=== PATIENT | female | born 1970 | race American Indian/Alaskan Native ===

== ENCOUNTER 2017-11-21 13:43 | Inpatient (IN) | payer SELFPAY ==
--- NOTE | 2017-11-21 15:34 | Emergency Department Report ---
Blank Doc - Documentation Documentation: Patient is a 47-year-old female who states she woke up this morning with numbness to the left upper extremity and lower extremity. Patient states she also has some mild weakness in both of these extremities as well. Patient denies any slurred speech problems speaking. Patient she felt normal yesterday. Patient denies any chest pain or shortness breath. Patient will be moved to the main ED f further management. CT of the head has been ordered as well as laboratory studies. Or - Level of Consciousness 1a. Level of Consciousness: alert - LOC Questions 1b. LOC Questions: answers correctly - LOC Command 1c. LOC Commands: performs tasks correctly - Best Gaze 2. Best Gaze: normal - Visual 3. Visual: no visual loss - Facial Palsy 4. Facial Palsy: normal symmetrical movement - Motor Arm 5b. Motor Arm Right: no drift 5a. Motor Arm Left: drift - Motor Leg 6a. Motor Leg Left: drift 6b. Motor Leg Right: no drift - Limb Ataxia 7. Limb Ataxia: absent - Sensory 8. Sensory: normal - Best Language 9. Best Language: no aphasia - Dysarthria 10. Dysarthria: normal - Extinction and Inattention 11. Extinction/Inattention: no abnormality - Scoring Total Score: 2 Stroke Severity: Minor Stroke
[2017-11-21 15:50] LABS: Basophils % (Auto) 0.3 % (0.0-1.8); Eosinophils % (Auto) 0.7 % (0.0-4.3); Hematocrit 28.2 % (30.3-42.9); Hemoglobin 8.5 gm/dl (10.1-14.3); Lymphocytes # (Auto) 1.6 K/mm3 (1.2-5.4); Lymphocytes % (Auto) 28.6 % (13.4-35.0); Mean Corpuscular HGB Conc 30 % (30-34); Monocytes # (Auto) 0.5 K/mm3 (0.0-0.8); Monocytes % (Auto) 8.9 % (0.0-7.3); Platelet Count 288 K/mm3 (140-440); Red Blood Count 4.25 M/mm3 (3.65-5.03)
[2017-11-21 15:55] LABS: Mean Corpuscular Hemoglobin 20 pg (28-32); Mean Corpuscular Volume 66 fl (79-97); Red Cell Distribution Width 20.3 % (13.2-15.2)
[2017-11-21 15:59] LABS: INR 0.95 (0.87-1.13)
[2017-11-21 16:00] LABS: Partial Thromboplastin Time 30.6 Sec. (24.2-36.6); Thrombin Time 15.9 Sec. (15.1-19.6)
[2017-11-21 16:35] LABS: Alanine Aminotransferase 8 units/L (7-56); Albumin 3.6 g/dL (3.9-5); BUN/Creatinine Ratio 17; Blood Urea Nitrogen 12 mg/dL (7-17); Calcium 8.8 mg/dL (8.4-10.2); Hemolysis Index 0
--- NOTE | 2017-11-21 16:41 | Emergency Department Report ---
HPI - General Chief Complaint: Back Pain/Injury Time Seen by Provider: 11/21/17 15:25 - HPI HPI: The patient is a 47-year-old female with a significant history of diabetes and hypertension, who presents for evaluation of left-sided numbness. The patient states that at 5 AM this morning, nearly 12 hours prior to my evaluation, she woke with numbness sensation of the left arm and leg, constant, severe, and associated with mild weakness of the distal lef upper and lower extremity. She has also experienced some sharp tingling pain to the distal upper and lower extremity. The patient denies fever, head injury, headache, neck pain, neck stiffness, vision or hearing changes, smell or taste changes, facial drooping, slurred speech, seizure-like activity, urine or bowel incontinence or retention , or other focal neurological deficit. ED Past Medical Hx - Past Medical History Hx Hypertension: Yes Hx Diabetes: Yes (on PO meds) - Surgical History Past Surgical History?: No - Social History Smoking Status: Never Smoker Substance Use Type: None - Medications Home Medications: Home Medications Medication Instructions Recorded Confirmed Last Taken Type Lisinopril [Zestril] 10 mg PO DAILY 11/21/17 11/21/17 11/21/17 History ED Review of Systems ROS: Stated complaint: (L) SIDE NUMB/HEART RACING Other details as noted in HPI Constitutional: denies: fever ENT: denies: throat or neck pain Respiratory: denies: cough, shortness of breath Cardiovascular: denies: chest pain Endocrine: denies unexplained weight loss or gain Gastrointestinal: denies: abdominal pain, nausea Genitourinary: denies: dysuria Musculoskeletal: denies: leg swelling Skin: denies: rash Neurological: reports numbness and weakness of left arm and leg denies: headache Hematological/Lymphatic: denies: easy bleeding or easy bruising Psych: denies sadness or hopelessness Physical Exam - Physical Exam Vital Signs: Vital Signs 11/21/17 14:02 Temperature 98.9 F Pulse Rate 85 Respiratory 16 Rate Blood Pressure 142/83 O2 Sat by Pulse 98 Oximetry Physical Exam: General: well-nourished, well-developed, no acute distress Head: Normocephalic, atraumatic Eyes: normal sclera ENT: Mucous membranes are pale and dry Neck: No neck stiffness, no cervical adenopathy Respiratory: Breath sounds equal bilaterally, no wheezing, rales, or rhonchi Cardio: S1 and S2 present, no murmurs, rubs, gallops, capillary refill is delayed Abdomen: Normoactive bowel sounds, soft abdomen, no rigidity, no guarding or rebound tenderness Chest WALL/Back: No tenderness to palpation of the chest wall, no CVA tenderness with percussion Musc: No pitting edema Skin: No rash Neuro: alert oriented x4, normal cognition, speech normal, PERRL, EOM intact, no facial drooping, no uvula or tongue deviation on protrusion, no deficit with rotation of neck or shoulder shrug, no obvious gross motor deficit in the upper or lower extremities with flexion or extension at the shoulder, elbow, wrist, hip, knee, or ankle bilaterally, decreased sensation to left arm and leg compared to right, no coordination deficit with [id number] or [id number] testing, Babinski downgoing, romberg negative, patient able to to ambulate with abnormal gait Psych: Normal affect ED Course Vital Signs 11/21/17 14:02 Temperature 98.9 F Pulse Rate 85 Respiratory 16 Rate Blood Pressure 142/83 O2 Sat by Pulse 98 Oximetry ED Medical Decision Making - Lab Data Result diagrams: 11/21/17 15:36 11/21/17 15:36 - Medical Decision Making The patient was seen and examined by myself. The patient is placed on a radiation monitor and continuous pulse ox. On initial evaluation, the patient was found to be in no distress. Evaluation orders were placed. CT scan of the head is negative for acute skull disease process. The patient is given a tablet of asprin for txt of her stroke as she was not a TPA candidate due to sterile also a greater than 12 hours ago. The on-call hospitalist service was contacted. They agreed to admit the patient for further treatment and close monitoring. The ED admit order was placed. The patient was admitted in guarded condition. - Level of Consciousness 1a. Level of Consciousness: alert - LOC Questions 1b. LOC Questions: answers correctly - LOC Command 1c. LOC Commands: performs tasks correctly - Best Gaze 2. Best Gaze: normal - Visual 3. Visual: no visual loss - Facial Palsy 4. Facial Palsy: normal symmetrical movement - Motor Arm 5b. Motor Arm Right: no drift 5a. Motor Arm Left: drift - Motor Leg 6a. Motor Leg Left: drift 6b. Motor Leg Right: no drift - Limb Ataxia 7. Limb Ataxia: absent - Sensory 8. Sensory: normal - Best Language 9. Best Language: no aphasia - Dysarthria 10. Dysarthria: normal - Extinction and Inattention 11. Extinction/Inattention: no abnormality - Scoring Total Score: 2 Stroke Severity: Minor Stroke Critical care attestation.: If time is entered above; I have spent that time in minutes in the direct care of this critically ill patient, excluding procedure time. ED Disposition Clinical Impression: Stroke Qualifiers: CVA mechanism: unspecified Qualified Code(s): I63.9 - Cerebral infarction, unspecified Disposition: DC-09 OP ADMIT IP TO THIS HOSP Is pt being admited?: Yes Does the pt Need Aspirin: Yes Condition: Fair Referrals: PRIMARY CARE [Primary Care Provider] - 3-5 Days Time of Disposition: 17:11
[2017-11-21] MEDS ORDERED: ZOFRAN IV ONE (16:51)
[2017-11-21] MEDS ORDERED: SUBLIMAZE IV ONE (16:51)
--- NOTE | 2017-11-21 17:24 | Cat Scan Report ---
FINAL REPORT PROCEDURE: CT HEAD/BRAIN WO CON TECHNIQUE: Computerized tomography of the head was performed without contrast material. HISTORY: Stroke symptoms COMPARISON: No prior studies are available for comparison. FINDINGS: No CT evidence of intracranial mass, hemorrhage, acute territorial infarction, or hydrocephalus. The intracranial arteries are symmetric in density. Calvarium is intact. The visualized paranasal sinuses and mastoids are aerated. IMPRESSION: No CT evidence of acute intracranial abnormality
[2017-11-21] MEDS ORDERED: BABY ASPIRIN PO ONE (18:17)
[2017-11-21] MEDS ORDERED: TYLENOL PO ONE (18:52)
[2017-11-21] MEDS ORDERED: TYLENOL PO PRN (22:33)
[2017-11-21] MEDS ORDERED: MORPHINE IV PRN (22:33)
[2017-11-21] MEDS ORDERED: ZOFRAN IV PRN (22:33)
[2017-11-21] MEDS ORDERED: SODIUM CHLORIDE FLUSH SYRINGE 10 ML IV PRN ×2 (22:33→22:35)
[2017-11-21] MEDS ORDERED: PERCOCET 5/325 PO PRN (22:33)
--- NOTE | 2017-11-21 22:33 | History and Physical Report ---
History of Present Illness Date of examination: 11/21/17 Date of admission: 11/21/17 18:28 Chief complaint: CC L side weakness and numbness since 5 am History of present illness: HPI 47-year-old female with a significant history of diabetes and hypertension, who presents for evaluation of left-sided numbness and weakness. The patient states that at 5 AM this morning, nearly 12 hours prior to ED admission woke up with numbness sensation of the left arm and leg, constant, severe, and associated with mild weakness of the distal lef upper and lower extremity. She has also experienced some sharp tingling pain to the distal upper and lower extremity. The patient denies fever, head injury, headache, neck pain, neck stiffness, vision or hearing changes, smell or taste changes, facial drooping, slurred speech, seizure-like activity, urine or bowel incontinence or retention , or other focal neurological deficit. Past Medical History Hx Hypertension: Yes Hx Diabetes: Yes (on PO meds) Surgical History Past Surgical History?: No Social History Smoking Status: Never Smoker Substance Use Type: None Family Hx Htn Medications Home Medications: Home Medications Medication Instructions Recorded Confirmed Last Taken Type Lisinopril [Zestril] 10 mg PO DAILY 11/21/17 11/21/17 11/21/17 History Review of Systems ROS: Stated complaint: (L) SIDE NUMB/HEART RACING Other details as noted in HPI Constitutional: denies: fever ENT: denies: throat or neck pain Respiratory: denies: cough, shortness of breath Cardiovascular: denies: chest pain Endocrine: denies unexplained weight loss or gain Gastrointestinal: denies: abdominal pain, nausea Genitourinary: denies: dysuria Musculoskeletal: denies: leg swelling Skin: denies: rash Neurological: reports numbness and weakness of left arm and leg denies: headache Hematological/Lymphatic: denies: easy bleeding or easy bruising Psych: denies sadness or hopelessness Medications and Allergies Allergies Allergy/AdvReac Type Severity Reaction Status Date / Time No Known Allergies Allergy Verified 09/21/13 07:42 Home Medications Medication Instructions Recorded Confirmed Last Taken Type Lisinopril [Zestril] 10 mg PO DAILY 11/21/17 11/21/17 11/21/17 History Exam - Constitutional Vitals: Temp Pulse Resp BP Pulse Ox 98.3 F 86 13 134/77 96 11/21/17 19:15 11/21/17 20:00 11/21/17 20:00 11/21/17 20:00 11/21/17 20:00 Results - Labs CBC & Chem 7: 11/22/17 03:52 11/22/17 03:52 Labs: Laboratory Last Values WBC 5.5 K/mm3 (4.5-11.0) 11/21/17 15:36 RBC 4.25 M/mm3 (3.65-5.03) 11/21/17 15:36 Hgb 8.5 gm/dl (10.1-14.3) L 11/21/17 15:36 Hct 28.2 % (30.3-42.9) L 11/21/17 15:36 MCV 66 fl (79-97) L 11/21/17 15:36 MCH 20 pg (28-32) L 11/21/17 15:36 MCHC 30 % (30-34) 11/21/17 15:36 RDW 20.3 % (13.2-15.2) H 11/21/17 15:36 Plt Count 288 K/mm3 (140-440) 11/21/17 15:36 Lymph % (Auto) 28.6 % (13.4-35.0) 11/21/17 15:36 [place] % (Auto) 8.9 % (0.0-7.3) H 11/21/17 15:36 Eos % (Auto) 0.7 % (0.0-4.3) 11/21/17 15:36 Baso % (Auto) 0.3 % (0.0-1.8) 11/21/17 15:36 Lymph # 1.6 K/mm3 (1.2-5.4) 11/21/17 15:36 [place] # 0.5 K/mm3 (0.0-0.8) 11/21/17 15:36 Eos # 0.0 K/mm3 (0.0-0.4) 11/21/17 15:36 Baso # 0.0 K/mm3 (0.0-0.1) 11/21/17 15:36 Seg Neutrophils % 61.5 % (40.0-70.0) 11/21/17 15:36 Seg Neutrophils # 3.4 K/mm3 (1.8-7.7) 11/21/17 15:36 PT 13.2 Sec. (12.2-14.9) 11/21/17 15:36 INR 0.95 (0.87-1.13) 11/21/17 15:36 APTT 30.6 Sec. (24.2-36.6) 11/21/17 15:36 Thrombin Time 15.9 Sec. (15.1-19.6) 11/21/17 15:36 Sodium 142 mmol/L (137-145) 11/21/17 15:36 Potassium 3.5 mmol/L (3.6-5.0) L 11/21/17 15:36 Chloride 104.9 mmol/L (98-107) 11/21/17 15:36 Carbon Dioxide 26 mmol/L (22-30) 11/21/17 15:36 Anion Gap 15 mmol/L 11/21/17 15:36 BUN 12 mg/dL (7-17) 11/21/17 15:36 Creatinine 0.7 mg/dL (0.7-1.2) 11/21/17 15:36 Estimated GFR > 60 ml/min 11/21/17 15:36 BUN/Creatinine Ratio 17 % 11/21/17 15:36 Glucose 100 mg/dL (65-100) 11/21/17 15:36 POC Glucose 128 (70-105) H 11/21/17 14:12 Calcium 8.8 mg/dL (8.4-10.2) 11/21/17 15:36 Total Bilirubin < 0.20 mg/dL (0.1-1.2) 11/21/17 15:36 AST 16 units/L (5-40) 11/21/17 15:36 ALT 8 units/L (7-56) 11/21/17 15:36 Alkaline Phosphatase 80 units/L (35-129) 11/21/17 15:36 Total Creatine Kinase 164 units/L (30-135) H 11/21/17 15:36 CK-MB (CK-2) 1.0 ng/mL (0.0-4.0) 11/21/17 15:36 CK-MB (CK-2) Rel Index 0.6 (0-4) 11/21/17 15:36 Troponin T < 0.010 ng/mL (0.00-0.029) 11/21/17 15:36 Total Protein 6.9 g/dL (6.3-8.2) 11/21/17 15:36 Albumin 3.6 g/dL (3.9-5) L 11/21/17 15:36 Albumin/Globulin Ratio 1.1 % 11/21/17 15:36 Assessment and Plan Advance Directives: Yes (Full code) VTE prophylaxis?: Chemical Plan of care discussed with patient/family: Yes - Patient Problems (1) Acute CVA (cerebrovascular accident) Current Visit: Yes Status: Acute Plan to address problem: Has some residual weakness inLUE Stroke w/u initiated in the form of MRI/MRA/CDS/ECho Neuro consult requested (2) HTN (hypertension) Current Visit: Yes Status: Chronic Qualifiers: Hypertension type: essential hypertension Qualified Code(s): I10 - Essential (primary) hypertension Plan to address problem: Cont antihypertensives (3) DVT prophylaxis Current Visit: Yes Status: Acute Plan to address problem: On Lovenox
[2017-11-22 04:40] LABS: Basophils % (Auto) 0.6 % (0.0-1.8); Eosinophils % (Auto) 0.7 % (0.0-4.3); Lymphocytes % (Auto) 34.3 % (13.4-35.0); Mean Corpuscular HGB Conc 29 % (30-34); Monocytes # (Auto) 0.6 K/mm3 (0.0-0.8); Monocytes % (Auto) 9.7 % (0.0-7.3); Platelet Count 267 K/mm3 (140-440)
[2017-11-22 05:14] LABS: Hemoglobin 8.2 gm/dl (10.1-14.3)
[2017-11-22 05:15] LABS: Hematocrit 27.8 % (30.3-42.9); Mean Corpuscular Hemoglobin 20 pg (28-32); Mean Corpuscular Volume 68 fl (79-97); Red Cell Distribution Width 20.5 % (13.2-15.2)
[2017-11-22 05:33] LABS: Alanine Aminotransferase 9 units/L (7-56); Albumin 3.4 g/dL (3.9-5); BUN/Creatinine Ratio 19; Blood Urea Nitrogen 13 mg/dL (7-17); Calcium 8.5 mg/dL (8.4-10.2); Chol/HDL Ratio 4.37 %; HDL Cholesterol 37 mg/dL (40-59); Hemolysis Index 14; LDL Cholesterol,Direct 122 mg/dL (50-130)
--- NOTE | 2017-11-22 08:35 | Progress Note ---
Assessment and Plan Assessment and plan: Patient is a 47 yo woman with a history of NIDDM, hypertension and obesity bmi 41.8 who presented with left side weakness and numbness. CT head w/o contrast reported no acute process -Acute CVA (cerebrovascular accident) ruled out -Hypertension: continue antihypertension -Anemia, microcytic: cbc monitoring -Morbid Obesity, BMI 41.8: consult Escapement Matcher -Hypokalemia, replace: bmp monitor -DVT prophylaxis: scd only History Interval history: Patient was seen and examined. Follow-up on current diagnosis of CVA. Overnight uneventful. Patient denies any chest pain, shortness breath, nausea/vomiting or severe headaches. Imaging, nursing note, chart, labs and old chart reviewed. Discussed with patient. Hospitalist Physical - Physical exam Narrative exam: GEN: WDWN, NAD, Awake, Alert, Orientated HEENT: NCAT, EOMI, PERRL, OP Clear NECK: supple, no adenopathy, no thyromegaly, no JVD CVS/HEART: RRR, normal S1S2, pulses present bilaterally CHEST/LUNGS: CTA B, Symmetrical chest expansion, good air entry bilaterally GI/Abdomen: soft, NTND, good bowel sounds, no guarding or rebound /Bladder: no suprapubic tenderness, no CVA or paraspinal tenderness EXT/Skin: no c/c/e, no obvious rash MSK: FROM x 4 Neuro: CN 2-12 grossly intact, no new focal deficits Psych: calm - Constitutional Vitals: Temp Pulse Resp BP Pulse Ox 98.1 F 70 20 136/83 98 11/22/17 04:29 11/22/17 04:29 11/22/17 04:29 11/22/17 04:29 11/22/17 04:29 Results - Labs CBC & Chem 7: 11/22/17 03:52 11/22/17 03:52 Labs: Laboratory Last Values WBC 5.8 K/mm3 (4.5-11.0) 11/22/17 03:52 RBC 4.10 M/mm3 (3.65-5.03) 11/22/17 03:52 Hgb 8.2 gm/dl (10.1-14.3) L 11/22/17 03:52 Hct 27.8 % (30.3-42.9) L 11/22/17 03:52 MCV 68 fl (79-97) L 11/22/17 03:52 MCH 20 pg (28-32) L 11/22/17 03:52 MCHC 29 % (30-34) L 11/22/17 03:52 RDW 20.5 % (13.2-15.2) H 11/22/17 03:52 Plt Count 267 K/mm3 (140-440) 11/22/17 03:52 Lymph % (Auto) 34.3 % (13.4-35.0) 11/22/17 03:52 [place] % (Auto) 9.7 % (0.0-7.3) H 11/22/17 03:52 Eos % (Auto) 0.7 % (0.0-4.3) 11/22/17 03:52 Baso % (Auto) 0.6 % (0.0-1.8) 11/22/17 03:52 Lymph # 2.0 K/mm3 (1.2-5.4) 11/22/17 03:52 [place] # 0.6 K/mm3 (0.0-0.8) 11/22/17 03:52 Eos # 0.0 K/mm3 (0.0-0.4) 11/22/17 03:52 Baso # 0.0 K/mm3 (0.0-0.1) 11/22/17 03:52 Seg Neutrophils % 54.7 % (40.0-70.0) 11/22/17 03:52 Seg Neutrophils # 3.2 K/mm3 (1.8-7.7) 11/22/17 03:52 PT 13.2 Sec. (12.2-14.9) 11/21/17 15:36 INR 0.95 (0.87-1.13) 11/21/17 15:36 APTT 30.6 Sec. (24.2-36.6) 11/21/17 15:36 Thrombin Time 15.9 Sec. (15.1-19.6) 11/21/17 15:36 Sodium 141 mmol/L (137-145) 11/22/17 03:52 Potassium 4.6 mmol/L (3.6-5.0) D 11/22/17 03:52 Chloride 105.2 mmol/L (98-107) 11/22/17 03:52 Carbon Dioxide 21 mmol/L (22-30) L 11/22/17 03:52 Anion Gap 19 mmol/L 11/22/17 03:52 BUN 13 mg/dL (7-17) 11/22/17 03:52 Creatinine 0.7 mg/dL (0.7-1.2) 11/22/17 03:52 Estimated GFR > 60 ml/min 11/22/17 03:52 BUN/Creatinine Ratio 19 % 11/22/17 03:52 Glucose 67 mg/dL (65-100) 11/22/17 03:52 POC Glucose 128 (70-105) H 11/21/17 14:12 Hemoglobin A1c 5.8 % (4-6) 11/21/17 23:14 Calcium 8.5 mg/dL (8.4-10.2) 11/22/17 03:52 Total Bilirubin < 0.20 mg/dL (0.1-1.2) 11/22/17 03:52 AST 19 units/L (5-40) 11/22/17 03:52 ALT 9 units/L (7-56) 11/22/17 03:52 Alkaline Phosphatase 79 units/L (35-129) 11/22/17 03:52 Total Creatine Kinase 164 units/L (30-135) H 11/21/17 15:36 CK-MB (CK-2) 1.0 ng/mL (0.0-4.0) 11/21/17 15:36 CK-MB (CK-2) Rel Index 0.6 (0-4) 11/21/17 15:36 Troponin T < 0.010 ng/mL (0.00-0.029) 11/21/17 15:36 Total Protein 6.5 g/dL (6.3-8.2) 11/22/17 03:52 Albumin 3.4 g/dL (3.9-5) L 11/22/17 03:52 Albumin/Globulin Ratio 1.1 % 11/22/17 03:52 Triglycerides 84 mg/dL (2-149) 11/22/17 03:52 Cholesterol 162 mg/dL (50-199) 11/22/17 03:52 LDL Cholesterol Direct 122 mg/dL (50-130) 11/22/17 03:52 HDL Cholesterol 37 mg/dL (40-59) L 11/22/17 03:52 Cholesterol/HDL Ratio 4.37 % 11/22/17 03:52
[2017-11-22] MEDS ORDERED: SODIUM CHLORIDE FLUSH SYRINGE 10 ML IV SCH (10:00)
[2017-11-22] MEDS ORDERED: ZESTRIL PO SCH (10:00)
--- NOTE | 2017-11-22 11:22 | Magnetic Resonance Report ---
MRI BRAIN WITHOUT CONTRAST: 11/22/17 CLINICAL: Stroke. TECHNIQUE: Axial diffusion, T1, T2, gradient echo T2*, coronal and axial FLAIR and sagittal T1 sequences on a 1.5 Bozena magnet. FINDINGS: Normal ventricles and sulci. No restricted diffusion and no abnormal signal. No mass or mass effect. No hemorrhage, edema or extra-axial collection. Normal pituitary and optic chiasm. The brainstem and cerebellum are normal. Intact vascular flow voids. Bilateral maxillary mucous retention cysts and otherwise clear sinuses. The orbits, and soft tissues are normal. Normal calvarium and skull base. IMPRESSION: Negative study. No evidence of acute/subacute infarct or hemorrhage.
--- NOTE | 2017-11-22 11:24 | Magnetic Resonance Report ---
MRA HEAD WITHOUT CONTRAST: 11/22/17 CLINICAL: Stroke. TECHNIQUE: Axial 3-D [id number] MR angiography of the [place] with review of axial source images. FINDINGS: Intact [place] with no aneurysm, stenosis or occlusion. Symmetric blood flow in the anterior, middle and posterior cerebral arteries. Normal basilar and vertebral arteries. IMPRESSION: Normal study.
[2017-11-22 12:49] VITALS: BP 156/84
--- NOTE | 2017-11-22 14:35 | Discharge Summary ---
Providers - Providers Date of Admission: 11/21/17 18:28 Date of discharge: 11/22/17 Attending physician: ALEXIA OWENS 11/21/17 22:33 Consult to Physician [CONS] Routine Comment: Consulting Provider: SEEMA LOPEZ Physician Instructions: Reason For Exam: CVA 11/21/17 22:35 Occupational Therapy Evaluate and Treat [CONS] Routine Comment: Reason For Exam: Neuro deficits Physical Therapy Evaluation and Treat [CONS] Routine Comment: Reason For Exam: Neuro deficits Primary care physician: ADOLESCENT PSYCHIATRIST Hospitalization Condition: Stable Hospital course: Patient is a 47 yo woman with a history of NIDDM, hypertension and obesity bmi 41.8 who presented with left side weakness and numbness. 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 -Hypokalemia, replace: bmp monitor -DVT prophylaxis: scd only Disposition: DC- TO HOME OR SELFCARE Time spent for discharge: 35 minutes Core Measure Documentation - Palliative Care Palliative Care/ Comfort Measures: Not Applicable - Core Measures Any of the following diagnoses?: none - VTE Discharge Requirements Deep Vein Thrombosis/Pulmonary Embolism Present on Admission: No Has pt received <5 days of overlap therapy or INR<2.0: No Anticoagulant overlap therapy prescribed at discharge: No Contraindication No Overlap Therapy order at DC: Not Indicated Exam - Physical Exam Narrative exam: GEN: WDWN, NAD, Awake, Alert, Orientated x 3 HEENT: NCAT, EOMI, PERRL, OP Clear NECK: supple, no adenopathy, no thyromegaly, no JVD CVS/HEART: RRR, normal S1S2, pulses present bilaterally CHEST/LUNGS: CTA B, Symmetrical chest expansion, good air entry bilaterally GI/Abdomen: soft, NTND, good bowel sounds, no guarding or rebound /Bladder: no suprapubic tenderness, no CVA or paraspinal tenderness EXT/Skin: no c/c/e, no obvious rash MSK: FROM x 4, 4/5 lue strength but encouragement improves strength Neuro: CN 2-12 grossly intact, no new focal deficits Psych: calm - Constitutional Vitals: Temp Pulse Resp BP Pulse Ox 97.8 F 74 20 156/84 99 11/22/17 11:30 11/22/17 11:30 11/22/17 11:30 11/22/17 11:30 11/22/17 11:30 Plan Activity: other (no strenous activity ) Diet: low salt Additional Instructions: [facility]. [address]. [place] [address]. [phone] Follow up with: PRIMARY CAREMD [Primary Care Provider] - 3-5 Days
--- NOTE | 2017-11-22 15:15 | Consultation ---
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 She went to work then developed headache , so proceeded to come to ER. The patient denied chest pain, palpitations, diaphoresis, blurred vision or double vision, change in speech, or facial numbness or weakness, no dizziness. Evaluation with CT was negative, Echocardiogram shows EF of 50 to 55%. Brain MRI and MRA are also unremarkable. Her symptoms of numbness and weakness have resolved and she has been up walking. Past History Past Medical History: diabetes, hypertension Social history: lives with family. denies: smoking, alcohol abuse Family history: CAD, cancer, diabetes, hypertension, stroke Medications and Allergies Allergies Allergy/AdvReac Type Severity Reaction Status Date / Time No Known Allergies Allergy Verified 09/21/13 07:42 Home Medications Medication Instructions Recorded Confirmed Last Taken Type Lisinopril [Zestril] 10 mg PO DAILY 11/21/17 11/21/17 11/21/17 History Acetaminophen [Acetaminophen TAB] 650 mg PO Q4H PRN #20 tablet 11/22/17 Unknown Rx Active Meds: Active Medications Acetaminophen (Tylenol) 650 mg PO Q4H PRN PRN Reason: Pain MILD(1-3)/Fever >100.5/VARGAS Lisinopril (Zestril) 10 mg PO DAILY [facility] Last Admin: 11/22/17 12:17 Dose: 10 mg Morphine Sulfate (Morphine) 2 mg IV Q4H PRN PRN Reason: Pain, Moderate (4-6) Ondansetron HCl (Zofran) 4 mg IV Q8H PRN PRN Reason: Nausea And Vomiting Oxycodone/Acetaminophen (Percocet 5/325) 1 tab PO Q6H PRN PRN Reason: Pain, Moderate (4-6) Last Admin: 11/22/17 12:18 Dose: 1 tab Sodium Chloride (Sodium Chloride Flush Syringe 10 Ml) 10 ml IV BID [facility] Last Admin: 11/22/17 12:23 Dose: 10 ml Sodium Chloride (Sodium Chloride Flush Syringe 10 Ml) 10 ml IV PRN PRN PRN Reason: LINE FLUSH Sodium Chloride (Sodium Chloride Flush Syringe 10 Ml) 10 ml IV PRN PRN PRN Reason: LINE FLUSH Review of Systems Constitutional: weakness, no sweats, no night sweats, no fatigue, no chronic headaches Ears, nose, mouth and throat: headache, no tinnitis, no decreased hearing, no vertigo Cardiovascular: no chest pain, no palpitations, no rapid/irregular heart beat, no edema, no syncope, no lightheadedness, no shortness of breath Respiratory: no cough, no hemoptysis, no shortness of breath, no dyspnea on exertion, no congestion, no pain Gastrointestinal: no abdominal pain, no nausea, no vomiting, no diarrhea, no constipation Genitourinary Female: no dysuria, no urinary frequency, no urgency Musculoskeletal: arm numbness/tingling, leg numbness/tingling, no neck pain, no low back pain Integumentary: no rash Neurological: transient paralysis, numbness, tingling, no head injury, no seizures, no syncope, no vertigo, no headaches, no balance difficulties, no double vision, no loss of vision, no hearing difficulties Endocrine: no weight change Hematologic/Lymphatic: no easy bruising Allergic/Immunologic: no urticaria Physical Examination - Vital Signs Vital Signs: Vital Signs Temp Pulse Resp BP Pulse Ox 98.9 F 85 16 142/83 98 11/21/17 14:02 11/21/17 14:02 11/21/17 14:02 11/21/17 14:02 11/21/17 14:02 Resting comfortably in bed. HEENT - no inflammation or lesions. neck supple, without adenopathy. Chest - clear to auscultation. Heart - reg. rate, nl S-1. S-2. Abdomen - soft, nontender. no organomegally or masses. Extremities - no CCE. Neurological - speech fluent. 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 V-1 thru V-3 intact bilaterally, hearing intact. Motor - 5/5 throughout. Reflexes - trace bilaterally Sensory - intact to touch and sharp. Cerebellar - FTN, Mann, fine finger movements intact. - Level of Consciousness 1a. Level of Consciousness: alert - LOC Questions 1b. LOC Questions: answers correctly - LOC Command 1c. LOC Commands: performs tasks correctly - Best Gaze 2. Best Gaze: normal - Visual 3. Visual: no visual loss - Facial Palsy 4. Facial Palsy: normal symmetrical movement - Motor Arm 5b. Motor Arm Right: no drift - Motor Leg 6a. Motor Leg Left: drift - Limb Ataxia 7. Limb Ataxia: absent - Sensory 8. Sensory: normal - Best Language 9. Best Language: no aphasia - Dysarthria 10. Dysarthria: normal - Extinction and Inattention 11. Extinction/Inattention: no abnormality Results - Laboratory Findings CBC and BMP: 11/22/17 03:52 11/22/17 03:52 Abnormal Lab Findings: Abnormal Labs 11/21/17 11/21/17 11/21/17 14:12 15:36 15:36 Hgb 8.5 L Hct 28.2 L MCV 66 L MCH 20 L MCHC RDW 20.3 H Mason % (Auto) 8.9 H Potassium 3.5 L Carbon Dioxide POC Glucose 128 H Total Creatine Kinase 164 H Albumin 3.6 L HDL Cholesterol 11/22/17 11/22/17 11/22/17 03:52 03:52 11:38 Hgb 8.2 L Hct 27.8 L MCV 68 L MCH 20 L MCHC 29 L RDW 20.5 H Mason % (Auto) 9.7 H Potassium Carbon Dioxide 21 L POC Glucose 108 H Total Creatine Kinase Albumin 3.4 L HDL Cholesterol 37 L Assessment and Plan 47 year old female who presented with left numbness and weakness, now resolved. Risk factors include diabetes, hypertension, family history. Symptoms were consistent with subcortical small vessel disease. MRI and MRA brain were normal. Plan - ASA 81 mg daily Maintain blood pressure and glucose control.
[2017-11-22] MEDS ORDERED: BABY ASPIRIN PO SCH (16:00)
== END 2017-11-22 15:47 | disposition home or self-care (01) | DRG 92 ==
LOC: ED 13:43 → 4A 18:28
PROVIDERS: ADMIT Internal Medicine; ATTEND Internal Medicine
DX: G95.89 Other specified diseases of spinal cord (principal); Z68.41 Body mass index [BMI] 40.0-44.9, adult; E11.9 Type 2 diabetes mellitus without complications; I10 Essential (primary) hypertension; G72.89 Other specified myopathies; D53.9 Nutritional anemia, unspecified; E66.01 Morbid (severe) obesity due to excess calories; E87.6 Hypokalemia; Z82.49 Family history of ischemic heart disease and other diseases of the circulatory system; Z80.9 Family history of malignant neoplasm, unspecified; Z83.3 Family history of diabetes mellitus; Z82.3 Family history of stroke; Z79.899 Other long term (current) drug therapy
CPT/HCPCS: 36415; 70450; 70544; 70551; 80053; 80061; 82550; 82553; 82962; 83036; 84484; 85025; 85610; 85670; 85730; 93005; 93010; 93306; 93880; 96374; 96375; J2405; J3010

== ENCOUNTER 2020-10-25 19:57 | Emergency (ER) | payer BC ==
--- NOTE | 2020-10-25 20:51 | Cat Scan Report ---
CT ABDOMEN AND PELVIS WITHOUT CONTRAST INDICATION / CLINICAL INFORMATION: Right lower quadrant pain with nausea. TECHNIQUE: Axial CT images were obtained through the abdomen and pelvis without IV contrast. All CT scans at this location are performed using CT dose reduction for ALARA by means of automated exposure control. COMPARISON: None available. FINDINGS: LOWER CHEST: No significant abnormality. LIVER: No significant abnormality. GALLBLADDER: No significant abnormality. BILE DUCTS: No significant abnormality. PANCREAS: No significant abnormality. SPLEEN: No significant abnormality. ADRENALS: No significant abnormality. RIGHT KIDNEY / URETER: No significant abnormality. LEFT KIDNEY / URETER: No significant abnormality. STOMACH / SMALL BOWEL: No significant abnormality. COLON: No significant abnormality. APPENDIX: No significant abnormality. PERITONEUM: No free fluid. No free air. No fluid collection. LYMPH NODES: No significant adenopathy. VASCULAR STRUCTURES: No significant abnormality. URINARY BLADDER: No significant abnormality. REPRODUCTIVE ORGANS: Fibroid uterus. ADDITIONAL FINDINGS: None. SKELETAL SYSTEM: Facet DJD localized L5-S1. IMPRESSION: 1. Negative for obstruction or localized inflammation. 2. Fibroid uterus. Signer Name: Luca Cervantes MD Signed: 10/25/2020 8:46 PM Workstation Name: [id number]
[2020-10-25 21:29] LABS: BUN/Creatinine Ratio 19; Blood Urea Nitrogen 15 mg/dL (7-17); Calcium 9.1 mg/dL (8.4-10.2); Hemolysis Index 3
[2020-10-25 21:31] LABS: Eosinophils # (Auto) 0.1 K/mm3 (0.0-0.4); Lymphocytes # (Auto) 2.1 K/mm3 (1.2-5.4); Lymphocytes % (Auto) 28.5 % (13.4-35.0); Mean Corpuscular HGB Conc 29 % (30-34); Monocytes # (Auto) 0.7 K/mm3 (0.0-0.8); Monocytes % (Auto) 9.9 % (0.0-7.3); Platelet Count 316 K/mm3 (140-440); Red Blood Count 4.44 M/mm3 (3.65-5.03)
[2020-10-25 21:32] LABS: Hemoglobin 7.7 gm/dl (10.1-14.3); Mean Corpuscular Volume 61 fl (79-97); Red Cell Distribution Width 22.4 % (13.2-15.2)
[2020-10-25] MEDS ORDERED: MORPHINE 4 MG/1 ML INJ IM ONE (22:11)
[2020-10-25] MEDS ORDERED: ONDANSETRON 4 MG/2 ML INJ IM ONE (22:11)
[2020-10-25] MEDS ORDERED: KETOROLAC 60 MG/2 ML INJ IM ONE (22:16)
--- NOTE | 2020-10-25 22:16 | Emergency Department Report ---
ED Abdominal Pain HPI - General Chief Complaint: Abdominal Pain Stated Complaint: SHARP RT SIDE PAINS Time Seen by Provider: 10/25/20 22:07 Source: patient Mode of arrival: Ambulatory Limitations: No Limitations - History of Present Illness Initial Comments: Patient is 50 years old female with history of hypertension and diabetes. Patient presented to the ER complaining of right lower quadrant abdominal pain since last night. Patient described her pain as sharp with no radiation. Patient also reported nausea but no vomiting. No diarrhea. Patient denied any fever or chills. She also denied any vaginal bleeding or vaginal discharge. MD Complaint: abdominal pain -: Last night Location: RLQ, suprapubic Radiation: none Migration to: no migration Severity: moderate Severity scale (0 -10): 5 Quality: sharp Consistency: intermittent Associated Symptoms: nausea. denies: vomiting, diarrhea - Related Data Previous Rx's Medication Instructions Recorded Last Taken Type Acetaminophen [Acetaminophen TAB] 650 mg PO Q4H PRN #20 tablet 11/22/17 Unknown Rx Lisinopril [Zestril] 10 mg PO DAILY #30 tablet 11/22/17 Unknown Rx Ketorolac [Toradol] 10 mg PO Q6H PRN #20 tablet 10/25/20 Unknown Rx Ondansetron [Zofran Odt] 4 mg PO Q8HR PRN #14 tab.rapdis 10/25/20 Unknown Rx Allergies Allergy/AdvReac Type Severity Reaction Status Date / Time No Known Allergies Allergy Verified 09/21/13 07:42 ED Review of Systems ROS: Stated complaint: SHARP RT SIDE PAINS Other details as noted in HPI Comment: All other systems reviewed and negative Constitutional: denies: chills, fever Respiratory: denies: cough, shortness of breath, SOB with exertion, SOB at rest Cardiovascular: denies: chest pain, palpitations Gastrointestinal: abdominal pain, nausea. denies: vomiting, diarrhea, constipation, hematemesis, melena, hematochezia Genitourinary: denies: urgency, dysuria Musculoskeletal: denies: back pain Neurological: denies: headache, weakness, numbness, paresthesias, confusion ED Past Medical Hx - Past Medical History Previous Medical History?: No Hx Hypertension: Yes Hx Diabetes: Yes (on PO meds) - Surgical History Past Surgical History?: No - Social History Smoking Status: Never Smoker - Medications Home Medications: Home Medications Medication Instructions Recorded Confirmed Last Taken Type Acetaminophen [Acetaminophen TAB] 650 mg PO Q4H PRN #20 tablet 11/22/17 Unknown Rx Lisinopril [Zestril] 10 mg PO DAILY #30 tablet 11/22/17 Unknown Rx Ketorolac [Toradol] 10 mg PO Q6H PRN #20 tablet 10/25/20 Unknown Rx Ondansetron [Zofran Odt] 4 mg PO Q8HR PRN #14 tab.rapdis 10/25/20 Unknown Rx ED Physical Exam - General Limitations: No Limitations General appearance: alert, in no apparent distress - Head Head exam: Present: atraumatic, normocephalic, normal inspection - Eye Eye exam: Present: normal appearance, PERRL - ENT ENT exam: Present: normal exam, normal orophraynx, mucous membranes moist - Neck Neck exam: Present: normal inspection, full ROM. Absent: tenderness, meningismus - Respiratory Respiratory exam: Present: normal lung sounds bilaterally - Cardiovascular Cardiovascular Exam: Present: regular rate, normal rhythm, normal heart sounds - GI/Abdominal GI/Abdominal exam: Present: soft, normal bowel sounds. Absent: distended, te nderness, guarding, rebound, rigid, organomegaly, hernia - Extremities Exam Extremities exam: Present: normal inspection, full ROM, normal capillary refill. Absent: pedal edema, calf tenderness - Back Exam Back exam: Present: normal inspection, full ROM. Absent: CVA tenderness (R), CVA tenderness (L) - Neurological Exam Neurological exam: Present: alert, oriented X3, CN II-XII intact, normal gait, reflexes normal. Absent: motor sensory deficit - Psychiatric Psychiatric exam: Present: normal mood - Skin Skin exam: Present: warm, intact, normal color ED Course Vital Signs 10/25/20 20:14 Temperature 99.0 F Pulse Rate 85 Respiratory 18 Rate Blood Pressure 143/86 O2 Sat by Pulse 99 Oximetry ED Medical Decision Making - Lab Data Result diagrams: 10/25/20 20:36 10/25/20 20:36 - Radiology Data Radiology results: report reviewed - Medical Decision Making Patient is 50 years old female with history of hypertension and diabetes. Patient presented to the ER complaining of right lower quadrant abdominal pain since last night. Patient described her pain as sharp with no radiation. Patient also reported nausea but no vomiting. No diarrhea. Patient denied any fever or chills. She also denied any vaginal bleeding or vaginal discharge. Labs reviewed and is unremarkable. CT abdomen and pelvis showed no abnormalities with a appendix however there is a uterine fibroid. Patient does not have a rebound tenderness and McBurney sign is negative however patient still informed about possibility of acute appendicitis and advised to follow-up with her primary care physician tomorrow and to return to the ER if she develop any new symptoms or if her symptoms is not getting better. Patient also advised to follow-up with a economics instructor for her uterine fibroid. Critical care attestation.: If time is entered above; I have spent that time in minutes in the direct care of this critically ill patient, excluding procedure time. ED Disposition Clinical Impression: Acute abdominal pain, Uterine fibroid Disposition: TO HOME OR SELFCARE Is pt being admited?: No Condition: Stable Instructions: Uterine Fibroids, [id number], Abdominal Pain, Adult, [id number], Abdominal Pain (ED) Prescriptions: Ketorolac [Toradol] 10 mg PO Q6H PRN #20 tablet PRN Reason: Pain Ondansetron [Zofran Odt] 4 mg PO Q8HR PRN #14 tab.rapdis PRN Reason: Nausea And Vomiting Referrals: PRIMARY CARE, [Primary Care Provider] - 3-5 Days [facility] [Provider Group] - 3-5 Days
[2020-10-25 22:47] LABS: Bacteria,Urine 1+ /HPF (Negative); Bilirubin,Urine NEG (Negative); Blood,Urine MOD (Negative); Color,Urine Yellow (Yellow); Mucus,Urine FEW /HPF; Protein,Urine <15 mg/dL mg/dL (Negative)
[2020-10-26 00:07] VITALS: BP 136/84
== END 2020-10-25 23:32 | disposition home or self-care (01) ==
LOC: ED 19:57
DX: D25.9 Leiomyoma of uterus, unspecified (principal); R10.31 Right lower quadrant pain; I10 Essential (primary) hypertension; E11.9 Type 2 diabetes mellitus without complications; Z79.899 Other long term (current) drug therapy
CPT/HCPCS: 36415; 74176; 80048; 81001; 82150; 83690; 85025; 96372; 99284; J1885; J2405

== ENCOUNTER 2021-08-29 15:11 | Emergency (ER) | payer BC ==
[2021-08-29 18:32] LABS: Basophils % (Auto) 0.6 % (0.0-1.8); Eosinophils # (Auto) 0.1 K/mm3 (0.0-0.4); Lymphocytes % (Auto) 31.1 % (13.4-35.0); Mean Corpuscular HGB Conc 28 % (30-34); Monocytes # (Auto) 0.6 K/mm3 (0.0-0.8); Monocytes % (Auto) 8.8 % (0.0-7.3); Platelet Count 356 K/mm3 (140-440); Red Blood Count 4.52 M/mm3 (3.65-5.03)
[2021-08-29 18:56] LABS: Alanine Aminotransferase 12 units/L (7-56); Albumin 4.2 g/dL (3.9-5); BUN/Creatinine Ratio 16; Blood Urea Nitrogen 13 mg/dL (7-17); Calcium 9.1 mg/dL (8.4-10.2); Hemolysis Index 0
[2021-08-29 19:09] LABS: Hemoglobin 8.1 gm/dl (10.1-14.3)
[2021-08-29 19:10] LABS: Hematocrit 28.4 % (30.3-42.9); Mean Corpuscular Volume 63 fl (79-97); Red Cell Distribution Width 21.5 % (13.2-15.2)
[2021-08-29 19:29] LABS: INR 0.93 (0.87-1.13); Partial Thromboplastin Time 28.6 Sec. (24.2-36.6)
[2021-08-30 03:02] LABS: Bilirubin,Urine NEG (Negative); Blood,Urine NEG (Negative); Color,Urine Yellow (Yellow); Mucus,Urine FEW /HPF
--- NOTE | 2021-08-30 07:27 | Emergency Department Report ---
ED General Adult HPI - General Chief complaint: Recheck/Abnormal Lab/Rx Stated complaint: NEED BLOOD TRANSFUSION Time Seen by Provider: 08/30/21 06:49 Source: patient Mode of arrival: Ambulatory Limitations: No Limitations - History of Present Illness Initial comments: Patient presents 2/ being told that her H/H on a routine outpatient draw was low. Denies dizziness, CP, SOB, LOC, hematemesis, hematochezia, melena, vaginal bleeding. Has a hx of regular heavy periods. Severity scale (0 -10): 4 - Related Data Previous Rx's Medication Instructions Recorded Last Taken Type Acetaminophen [Acetaminophen TAB] 650 mg PO Q4H PRN #20 tablet 11/22/17 Unknown Rx Lisinopril [Zestril] 10 mg PO DAILY #30 tablet 11/22/17 Unknown Rx Ketorolac [Toradol] 10 mg PO Q6H PRN #20 tablet 10/25/20 Unknown Rx Ondansetron [Zofran Odt] 4 mg PO Q8HR PRN #14 tab.rapdis 10/25/20 Unknown Rx Allergies Allergy/AdvReac Type Severity Reaction Status Date / Time No Known Allergies Allergy Verified 09/21/13 07:42 ED Review of Systems ROS: Stated complaint: NEED BLOOD TRANSFUSION Other details as noted in HPI Comment: All other systems reviewed and negative Constitutional: denies: chills, fever ED Past Medical Hx - Past Medical History Previous Medical History?: No Hx Hypertension: Yes Hx Diabetes: Yes (on PO meds) - Surgical History Past Surgical History?: No - Social History Smoking Status: Never Smoker - Medications Home Medications: Home Medications Medication Instructions Recorded Confirmed Last Taken Type Acetaminophen [Acetaminophen TAB] 650 mg PO Q4H PRN #20 tablet 11/22/17 Unknown Rx Lisinopril [Zestril] 10 mg PO DAILY #30 tablet 11/22/17 Unknown Rx Ketorolac [Toradol] 10 mg PO Q6H PRN #20 tablet 10/25/20 Unknown Rx Ondansetron [Zofran Odt] 4 mg PO Q8HR PRN #14 tab.rapdis 10/25/20 Unknown Rx ED Physical Exam - General Limitations: No Limitations General appearance: alert, in no apparent distress - Head Head exam: Present: atraumatic, normocephalic - Eye Eye exam: Present: PERRL, EOMI - ENT ENT exam: Present: mucous membranes moist, other (airway patent) - Neck Neck exam: Present: other (supple; no JVD) - Respiratory Respiratory exam: Present: other (good air entry, nml I:E, CTAB, no use of SUMIT) - Cardiovascular Cardiovascular Exam: Present: regular rate. Absent: rubs, gallop - GI/Abdominal GI/Abdominal exam: Present: soft, normal bowel sounds. Absent: distended, tenderness - Extremities Exam Extremities exam: Present: full ROM. Absent: tenderness - Back Exam Back exam: Present: full ROM. Absent: tenderness - Neurological Exam Neurological exam: Present: alert, oriented X3, CN II-XII intact. Absent: motor sensory deficit - Skin Skin exam: Present: warm, normal color ED Course Vital Signs 08/29/21 08/30/21 08/30/21 17:53 02:29 02:30 Temperature 98.9 F Pulse Rate 72 Respiratory 18 Rate Blood Pressure 170/83 Blood Pressure [Left] O2 Sat by Pulse 99 100 100 Oximetry 08/30/21 08/30/21 08/30/21 02:39 02:40 02:52 Temperature 98.5 F Pulse Rate 83 Respiratory 17 Rate Blood Pressure 157/54 Blood Pressure 153/91 [Left] O2 Sat by Pulse 98 98 Oximetry 08/30/21 08/30/21 08/30/21 03:01 03:15 03:31 Temperature Pulse Rate Respiratory Rate Blood Pressure 157/54 145/76 153/87 Blood Pressure [Left] O2 Sat by Pulse 100 100 96 Oximetry 08/30/21 08/30/21 08/30/21 03:45 04:01 04:15 Temperature Pulse Rate Respiratory Rate Blood Pressure 153/87 146/87 141/78 Blood Pressure [Left] O2 Sat by Pulse 96 97 98 Oximetry 08/30/21 08/30/21 08/30/21 04:31 04:45 04:58 Temperature 98.4 F Pulse Rate 77 Respiratory Rate Blood Pressure 138/88 138/88 Blood Pressure [Left] O2 Sat by Pulse 97 98 Oximetry ED Medical Decision Making - Lab Data Result diagrams: 08/29/21 18:09 08/29/21 18:09 Laboratory Tests 08/29/21 08/29/21 08/29/21 18:09 18:09 18:09 WBC 6.3 RBC 4.52 Hgb 8.1 L Hct 28.4 L MCV 63 L MCH 18 L MCHC 28 L RDW 21.5 H Plt Count 356 Lymph % (Auto) 31.1 Waldo % (Auto) 8.8 H Eos % (Auto) 1.0 Baso % (Auto) 0.6 Lymph # (Auto) 2.0 Waldo # (Auto) 0.6 Eos # (Auto) 0.1 Baso # (Auto) 0.0 Seg Neutrophils % 58.5 Seg Neutrophils # 3.7 PT 13.5 INR 0.93 APTT 28.6 Sodium 139 Potassium 4.6 Chloride 104.3 Carbon Dioxide 26 Anion Gap 13 BUN 13 Creatinine 0.8 Estimated GFR > 60 BUN/Creatinine Ratio 16 Glucose 95 Calcium 9.1 Total Bilirubin 0.20 AST 17 ALT 12 Alkaline Phosphatase 97 Total Protein 7.1 Albumin 4.2 Albumin/Globulin Ratio 1.4 Urine Color Urine Turbidity Urine pH Ur Specific Woden Urine Protein Urine Glucose (UA) Urine Ketones Urine Blood Urine Nitrite Urine Bilirubin Urine Urobilinogen Ur Leukocyte Esterase Urine WBC (Auto) Urine RBC (Auto) U Epithel Cells (Auto) Urine Mucus Blood Type Antibody Screen 08/29/21 08/30/21 18:09 Unknown WBC RBC Hgb Hct MCV MCH MCHC RDW Plt Count Lymph % (Auto) Waldo % (Auto) Eos % (Auto) Baso % (Auto) Lymph # (Auto) Waldo # (Auto) Eos # (Auto) Baso # (Auto) Seg Neutrophils % Seg Neutrophils # PT INR APTT Sodium Potassium Chloride Carbon Dioxide Anion Gap BUN Creatinine Estimated GFR BUN/Creatinine Ratio Glucose Calcium Total Bilirubin AST ALT Alkaline Phosphatase Total Protein Albumin Albumin/Globulin Ratio Urine Color Yellow Urine Turbidity Clear Urine pH 6.0 Ur Specific Woden 1.019 Urine Protein 30 mg/dl Urine Glucose (UA) Neg Urine Ketones Neg Urine Blood Neg Urine Nitrite Neg Urine Bilirubin Neg Urine Urobilinogen 4.0 Ur Leukocyte Esterase Neg Urine WBC (Auto) 1.0 Urine RBC (Auto) 3.0 U Epithel Cells (Auto) 2.0 Urine Mucus Few Blood Type O POSITIVE Antibody Screen Negative Baseline H/H since 2018: - Medical Decision Making diff dz: chronic anemia, likely from iron deficiency due to menorrhagia. Hemodynamically stable. H/H @ baseline. Asymptomatic. No indications for blood transfusion @ this time. Further care deferred to PCP as an outpatient. Critical care attestation.: If time is entered above; I have spent that time in minutes in the direct care of this critically ill patient, excluding procedure time. ED Disposition Clinical Impression: Anemia Disposition: 01 HOME / SELF CARE / HOMELESS Is pt being admited?: No Does the pt Need Aspirin: No Condition: Stable Instructions: Preventing Iron Deficiency Anemia, Adult Additional Instructions: Follow up with your regular doctor in 2 -4 days. Return to the ER if your sympt oms worsen. Time of Disposition: 07:27
[2021-08-30 07:50] VITALS: BP 143/79
== END 2021-08-30 07:50 | disposition home or self-care (01) ==
LOC: ED 15:11
DX: D64.9 Anemia, unspecified (principal); I10 Essential (primary) hypertension; E11.9 Type 2 diabetes mellitus without complications
CPT/HCPCS: 36415; 80053; 81001; 85025; 85610; 85730; 86850; 86900; 86901; 99283